=== PATIENT | male | born 1960 | race Caucasian/White ===

== ENCOUNTER 2016-09-29 06:15 | Emergency (ER) | payer OTHER ==
[~2016-09-29] VITALS: Ht 177.8 cm; Wt 97.2 kg
[~2016-09-29 06:15] MED LIST: DULERA 200 MCG/13 GM IH; METHOTREXATE2.5 MG PO; MOBIC15 MG PO; PREDNISONE PO
[2016-09-29 06:48] LABS: HEMATOCRIT 44.2 % (38.0-50.0); MCH 29.1 PG (29.0-34.0); MCHC 34.4 G/DL (30.0-36.0); MCV 84.7 FL (86-99); MEAN PLAT.VOLUME 9.7 uM^3 (9.0-12.4); PLATELET COUNT 275 K/uL (156-360); RED BLOOD COUNT 5.22 M/uL (4.00-5.50); WHITE BLOOD COUNT 7.7 K/uL (4.1-10.2)
[2016-09-29 06:58] LABS: CHLORIDE 108 mEq/L (99-109); POTASSIUM 4.5 mEq/L (3.7-5.4); SODIUM 142 mEq/L (136-147)
[2016-09-29 07:00] LABS: GLUCOSE 94 mg/dL (70-99)
[2016-09-29 07:01] LABS: ANION GAP 9 MEQ/L (2-14)
[2016-09-29 07:04] LABS: GFR ESTIMATE (CALCULATED) > 59 mL/min/
[2016-09-29 07:05] LABS: UREA NITROGEN (BUN) 25 mg/dL (9-23)
[2016-09-29] MEDS ORDERED: BREO ELLIPTA 21 EACH AEROSOL (07:07)
[2016-09-29 09:00] LABS: ADD MIUA? NO; BILIRUBIN NEGATIVE; BLOOD NEGATIVE; COLOR YELLOW ((YELLOW)); GLUCOSE (STRIP) NEGATIVE; KETONES NEGATIVE; LEUKOCYTES NEGATIVE; NITRITE NEGATIVE; PH, URINE 5.5 (5-8); PROTEIN (STRIP) NEGATIVE; SPECIFIC GRAVITY 1.023 (1.000-1.030); UROBILINOGEN 0.2 MG/DL (0.2-1.0)
[2016-09-29 09:06] LABS: UCUL ADDED? NO
[2016-09-29] MEDS ORDERED: PERCOCET 5/31 TABLET PO (12:24)
[2016-09-29] MEDS ORDERED: LEVAQUIN750 MG PO (12:24)
[2016-09-29 12:51] VITALS: BP 119/60
== END 2016-09-29 12:40 | disposition home or self-care (01) ==
LOC: EME 06:15
PROVIDERS: Emergency Medicine
DX: J18.9 Pneumonia, unspecified organism (principal); R10.9 Unspecified abdominal pain; R39.11 Hesitancy of micturition; D86.9 Sarcoidosis, unspecified; Z79.52 Long term (current) use of systemic steroids
CPT/HCPCS: 74176; 80048; 81003; 85027; 99281; 99284; J1885; J2270; J2405; J7030

== ENCOUNTER 2017-04-05 08:10 | Emergency (ER) | payer OTHER ==
[~2017-04-05] VITALS: Ht 175.3 cm; Wt 98.6 kg
[~2017-04-05 08:10] MED LIST changes: +BREO ELLIPTA 21 EACH AEROSOL; +LEVAQUIN750 MG PO; +PERCOCET 5/31 TABLET PO
[2017-04-05 08:56] LABS: ADD MIUA? YES; BILIRUBIN NEGATIVE; BLOOD MODERATE; COLOR YELLOW ((YELLOW)); GLUCOSE (STRIP) NEGATIVE; KETONES NEGATIVE; LEUKOCYTES NEGATIVE; NITRITE NEGATIVE; PROTEIN (STRIP) 30; SPECIFIC GRAVITY 1.024 (1.000-1.030); UROBILINOGEN 0.2 MG/DL (0.2-1.0)
[2017-04-05 08:59] LABS: BACTERIA 1+ /HPF; CALCIUM OXALATE CRYSTALS 1+ /HPF; EPITHELIAL CELLS NONE SEEN /HPF; HYALINE CASTS 0-5 /LPF; MUCUS TRACE /LPF; RED BLOOD CELLS 20-30 /HPF (0-5); UCUL ADDED? NO; WHITE BLOOD CELLS 0-5 /HPF (0-5)
[2017-04-05 09:23] LABS: HEMATOCRIT 44.8 % (38.0-50.0); MCH 28.9 PG (29.0-34.0); MCHC 33.7 G/DL (30.0-36.0); MCV 85.7 FL (86-99); MEAN PLAT.VOLUME 9.9 uM^3 (9.0-12.4); PLATELET COUNT 232 K/uL (156-360); RBC DIS.WIDTH-CV 13.9 % (11.8-14.6); RBC DIS.WIDTH-SD 43.7 % (39-53); RED BLOOD COUNT 5.23 M/uL (4.00-5.50)
[2017-04-05 09:36] LABS: CHLORIDE 107 mEq/L (99-109); POTASSIUM 4.7 mEq/L (3.7-5.4); SODIUM 140 mEq/L (136-147)
[2017-04-05 09:38] LABS: GLUCOSE 117 mg/dL (70-99)
[2017-04-05 09:39] LABS: ANION GAP 8 MEQ/L (2-14)
[2017-04-05 09:42] LABS: GFR ESTIMATE (CALCULATED) > 59 mL/min/
[2017-04-05 09:43] LABS: UREA NITROGEN (BUN) 18 mg/dL (9-23)
[2017-04-05] MEDS ORDERED: FLOMAX0.4 MG PO (10:53)
[2017-04-05] MEDS ORDERED: LORTAB 5-325 M1 EACH PO (10:53)
[2017-04-05 12:02] VITALS: BP 140/82
== END 2017-04-05 12:03 | disposition home or self-care (01) ==
LOC: EME 08:10
DX: N20.0 Calculus of kidney (principal); R31.9 Hematuria, unspecified; D86.9 Sarcoidosis, unspecified
CPT/HCPCS: 74176; 80048; 81003; 85027; 99281; 99284; J1885; J3010; J7030